=== PATIENT | male | born 2000 | race Asian ===

== ENCOUNTER 2021-08-01 21:43 | Emergency (ER) | payer OTHER ==
[~2021-08-01] VITALS: Ht 172.7 cm; Wt 77.1 kg
[2021-08-01 22:26] LABS: PLATELET COUNT 142 K/uL (142-355)
[2021-08-01 22:35] LABS: POTASSIUM 3.6 mmol/L (3.6-5.2)
[2021-08-01 23:10] VITALS: BP 115/77; TEMP 99.5
== END 2021-08-01 23:15 | disposition home or self-care (01) ==
LOC: ED 21:43
PROVIDERS: Hospitalist
DX: J32.8 Other chronic sinusitis (principal); G44.209 Tension-type headache, unspecified, not intractable; R50.9 Fever, unspecified; Z20.822 Contact with and (suspected) exposure to COVID-19
CPT/HCPCS: 36415; 80048; 85027; 87040; 87502; 87635; 87651; 96361; 96365; 99284; J0696; J1885; J2405; U0003